=== PATIENT | female | born 1990 | race African-American/Black ===

== ENCOUNTER 2019-06-06 13:20 | Emergency (ER) | payer MEDICAID, OTHER ==
[~2019-06-06] VITALS: Ht 157.5 cm; Wt 91.0 kg
[2019-06-06 13:30] VITALS: BP 135/77
[2019-06-06] MEDS ORDERED: BACITRACIN ZINC OINT UDPKT TOP ONE (14:15)
[2019-06-06] MEDS ORDERED: LIDOCAINE HCL/PF 1% 10 MG/ML 5ML VIAL IJ ONE (14:15)
== END 2019-06-06 15:10 | disposition home or self-care (01) ==
LOC: ER 13:20
DX: L73.2 Hidradenitis suppurativa (principal)
CPT/HCPCS: 10060; 99283; A4217; J3490; Z7610

== ENCOUNTER 2019-06-08 12:24 | Emergency (ER) | payer OTHER ==
[~2019-06-08] VITALS: Ht 157.5 cm; Wt 90.0 kg
[2019-06-08 15:00] VITALS: BP 124/75
== END 2019-06-08 15:15 | disposition home or self-care (01) ==
LOC: ER 12:24
DX: L02.411 Cutaneous abscess of right axilla (principal); Z98.890 Other specified postprocedural states
CPT/HCPCS: 99283

== ENCOUNTER 2019-06-10 11:07 | Emergency (ER) | payer OTHER ==
[~2019-06-10] VITALS: Ht 157.5 cm; Wt 91.0 kg
[2019-06-10 13:00] VITALS: BP 121/80
== END 2019-06-10 13:01 | disposition home or self-care (01) ==
LOC: ER 11:07
DX: Z48.00 Encounter for change or removal of nonsurgical wound dressing (principal); Z98.890 Other specified postprocedural states
CPT/HCPCS: 99281

== ENCOUNTER 2019-08-10 09:02 | Emergency (ER) | payer OTHER ==
[~2019-08-10] VITALS: Ht 157.5 cm; Wt 90.0 kg
[2019-08-10] MEDS ORDERED: IBUPROFEN 600MG TABLET PO ONE (09:30)
[2019-08-10 09:39] VITALS: BP 125/88
== END 2019-08-10 10:50 | disposition home or self-care (01) ==
LOC: ER 10:37
DX: H60.92 Unspecified otitis externa, left ear (principal); Z98.890 Other specified postprocedural states
CPT/HCPCS: 99283

== ENCOUNTER 2019-12-28 05:12 | Emergency (ER) | payer OTHER ==
[~2019-12-28] VITALS: Ht 157.5 cm; Wt 82.0 kg
[2019-12-28 09:58] LABS: BASOPHILS % 0.6 % (0.0-2.0); EOSINOPHILS % 1.4 % (0.0-5.0); HEMOGLOBIN. 10.5 g/dL (12.0-16.0); LYMPHOCYTES % 50.8 % (20.0-50.0); MEAN CORPUSCULAR HEMOGLOBIN 25.8 pg (28.0-32.0); MEAN CORPUSCULAR VOLUME 78.9 fL (81.0-99.0); MONOCYTES % 7.1 % (2.0-8.0); NEUTROPHILS % 40.1 % (40.0-76.0); PLATELET 344 x1000/uL (130-400); RED BLOOD CELL COUNT 4.06 mill/uL (4.2-5.4); RED CELL DISTRIBUTION WIDTH 19.2 % (11.6-14.6)
[2019-12-28 10:06] LABS: CHLORIDE 112 mEq/L (98-107)
[2019-12-28 10:07] LABS: PROTHROMBIN TIME 11.3 sec (9.6-11.0)
[2019-12-28 10:10] LABS: ETHANOL BLOOD < 10 mg/dL
[2019-12-28 10:27] LABS: HCG SCREEN NEGATIVE
[2019-12-28 12:26] LABS: CLARITY URINE CLOUDY (CLEAR); COLOR URINE YELLOW (YELLOW); KETONES URINE 1+ (NEGATIVE); LEUKOCYTE ESTERASE URINE NEGATIVE (NEGATIVE); NITRITE URINE NEGATIVE (NEGATIVE); OCCULT BLOOD URINE 3+ (NEGATIVE); PH URINE 5.5 (4.5-8.0); PROTEIN URINE NEGATIVE (NEGATIVE); SPECIFIC GRAVITY URINE 1.028 (1.005-1.030); UROBILINOGEN URINE 0.2 E.U./dL (0.2-1.0)
[2019-12-28 12:38] LABS: *AMPHETAMINES SCREEN URINE NEGATIVE (NEGATIVE); *BARBITURATES SCREEN URINE NEGATIVE (NEGATIVE); *BENZODIAZEPINES SCREEN URINE NEGATIVE (NEGATIVE); *COCAINE SCREEN URINE NEGATIVE (NEGATIVE)
[2019-12-28 12:39] LABS: METHADONE URINE SCREEN NEGATIVE (NEGATIVE); OPIATES URINE SCREEN NEGATIVE (NEGATIVE); PHENCYCLIDINE URINE SCREEN NEGATIVE (NEGATIVE)
[2019-12-28 12:40] LABS: CANNABINOID URINE SCREEN PRESUMTIVE POSITIVE (NEGATIVE)
[2019-12-28 14:28] VITALS: BP 126/89
== END 2019-12-28 14:42 | disposition home or self-care (01) ==
LOC: ER 05:12
DX: K80.20 Calculus of gallbladder without cholecystitis without obstruction (principal); Z98.890 Other specified postprocedural states
CPT/HCPCS: 36415; 71045; 76705; 80053; 80305; 80320; 81003; 81025; 84703; 85025; 99285; G0480

== ENCOUNTER 2020-08-16 21:03 | Emergency (ER) | payer MEDICAID, OTHER ==
[~2020-08-16] VITALS: Ht 157.5 cm; Wt 80.0 kg
[2020-08-16] MEDS ORDERED: SODIUM CHLORIDE 0.9% 1,000 ML IV ONE (21:15)
[2020-08-16] MEDS ORDERED: ACETAMINOPHEN 325MG TABLET PO STA (21:34)
[2020-08-16] MEDS ORDERED: CEFTRIAXONE 1 G PREMIX 50 ML IV ONE (21:45)
[2020-08-16 22:09] LABS: BASOPHILS % 0.3 % (0.0-2.0); HEMATOCRIT. 31.5 % (36.0-48.0); HEMOGLOBIN. 10.4 g/dL (12.0-16.0); LYMPHOCYTES % 11.5 % (20.0-50.0); MEAN CORPUSCULAR HEMOGLOBIN 27.1 pg (28.0-32.0); MEAN CORPUSCULAR VOLUME 81.9 fL (81.0-99.0); MEAN PLATELET VOLUME 7.9 fl (7.4-10.4); MONOCYTES % 12.8 % (2.0-8.0); NEUTROPHILS % 75.4 % (40.0-76.0); PLATELET 286 x1000/uL (130-400); RED BLOOD CELL COUNT 3.85 mill/uL (4.2-5.4); RED CELL DISTRIBUTION WIDTH 16.2 % (11.6-14.6)
[2020-08-16 22:17] LABS: CLARITY URINE CLOUDY (CLEAR); COLOR URINE DARK YELLOW (YELLOW); KETONES URINE TRACE (NEGATIVE); LEUKOCYTE ESTERASE URINE 3+ (NEGATIVE); NITRITE URINE NEGATIVE (NEGATIVE); OCCULT BLOOD URINE 3+ (NEGATIVE); PH URINE 5.5 (4.5-8.0); PROTEIN URINE 2+ (NEGATIVE); SPECIFIC GRAVITY URINE 1.022 (1.005-1.030)
[2020-08-16 22:21] LABS: CHLORIDE 105 mEq/L (98-107)
[2020-08-16 22:25] LABS: HCG SCREEN NEGATIVE
[2020-08-16] MEDS ORDERED: SODIUM CHLORIDE 0.9% 1000ML BAG (SEPSIS BOLUS) IV ONE (22:30)
[2020-08-16] MEDS ORDERED: SODIUM CHLORIDE 0.9% 2,400 ML IV SCH (22:30)
[2020-08-16] MEDS ORDERED: POTASSIUM CHLORIDE 20MEQ TABLET SR PO NR (22:45)
[2020-08-17] MEDS ORDERED: IBUPROFEN 400MG TABLET PO NR (00:30)
[2020-08-17 01:00] VITALS: BP 114/71
== END 2020-08-17 01:15 | disposition home or self-care (01) ==
LOC: ER 22:36
DX: N10 Acute pyelonephritis (principal); D64.9 Anemia, unspecified; E87.6 Hypokalemia; R00.0 Tachycardia, unspecified; Z86.73 Personal history of transient ischemic attack (TIA), and cerebral infarction without residual deficits; Z90.49 Acquired absence of other specified parts of digestive tract; Z98.890 Other specified postprocedural states
CPT/HCPCS: 36415; 71045; 74176; 80053; 81003; 83605; 84145; 84703; 85025; 87040; 87086; 93005; 96361; 96365; 99285; J0696; J7030

== ENCOUNTER 2022-12-10 17:37 | Emergency (ER) | payer OTHER ==
[~2022-12-10] VITALS: Ht 157.5 cm; Wt 83.0 kg
[~2022-12-10 17:37] MED LIST: CEPH500C2 MT; DOXY100C5 MT; FLUC150T46 MT; T3 PO
[2022-12-10 17:58] VITALS: BP 143/97
[2022-12-10] MEDS ORDERED: ACETAMINOPHEN 325MG TABLET PO ONE (19:45)
[2022-12-10] MEDS ORDERED: DEXAMETHASONE 4MG TABLET PO ONE (20:15)
[2022-12-10] MEDS ORDERED: IBUP-2029 MT (20:46)
== END 2022-12-10 21:00 | disposition home or self-care (01) ==
LOC: ER 17:37
DX: J02.9 Acute pharyngitis, unspecified (principal); Z98.890 Other specified postprocedural states; Z79.899 Other long term (current) drug therapy; Z20.822 Contact with and (suspected) exposure to COVID-19
CPT/HCPCS: 81025; 87426; 99283; C9803; J8540

== ENCOUNTER 2024-02-03 08:58 | Emergency (ER) | payer MEDICAID ==
[~2024-02-03] VITALS: Ht 165.1 cm; Wt 79.5 kg
[~2024-02-03 08:58] MED LIST changes: +IBUP-2029 MT
[2024-02-03 09:09] VITALS: O2SAT 100
[2024-02-03] MEDS ORDERED: ACET-2708 MT (09:28)
[2024-02-03] MEDS ORDERED: PENI500T MT (09:28)
[2024-02-03] MEDS: KETOROLAC 60MG/2ML VIAL IM ONE (09:38)
[2024-02-03 09:40] VITALS: BP 145/80; PULSE 100; RESP 17; TEMP 98.9
== END 2024-02-03 09:45 | disposition home or self-care (01) ==
LOC: ER 08:58
DX: J03.90 Acute tonsillitis, unspecified (principal); Z20.822 Contact with and (suspected) exposure to COVID-19; Z98.890 Other specified postprocedural states; Z90.49 Acquired absence of other specified parts of digestive tract; Z68.29 Body mass index [BMI] 29.0-29.9, adult
CPT/HCPCS: 81025; 87430; 87804 ×2; 96372; 99283; 87426; J1885; Z7610

== ENCOUNTER 2024-02-05 09:33 | Emergency (ER) | payer MEDICAID ==
[~2024-02-05] VITALS: Ht 157.5 cm; Wt 77.0 kg
[~2024-02-05 09:33] MED LIST changes: +ACET-2708 MT; +PENI500T MT
[2024-02-05 09:43] VITALS: BP 145/90; PULSE 86; RESP 16; TEMP 97.8; O2SAT 100
[2024-02-05] MEDS ORDERED: PRED10TA MT (12:21)
== END 2024-02-05 12:51 | disposition home or self-care (01) ==
LOC: ER 09:46
DX: J02.0 Streptococcal pharyngitis (principal); Z98.890 Other specified postprocedural states; Z90.49 Acquired absence of other specified parts of digestive tract
CPT/HCPCS: 99283